=== PATIENT | male | born 1930 | race Caucasian/White ===

== ENCOUNTER 2019-01-26 10:04 | Emergency (ER) | payer MEDICARE, OTHER ==
[~2019-01-26] VITALS: Ht 157.5 cm; Wt 65.8 kg
[2019-01-26] MEDS ORDERED: UNOBMED (10:13)
--- NOTE | 2019-01-26 10:25 | NUR ---
ED Nurse Note: PT BROUGHT IN TO ER TODAY FROM HOME. AOX4. PT C/O LEFT ANKLE PAIN, 10/10 AFTER TWISTING IT X LAST NIGHT. FULL ROM OF ANKLE AND DIGITS BUT WITH PAIN. CIRCULATION AND SENSATION INTACT, CAP REFILL <3 SECONDS, AND SKIN CLEAN, DRY, AND INTACT. PT DENIES HEAD TRAUMA OR LOC.
--- NOTE | 2019-01-26 10:34 | NUR ---
ED Nurse Note: sap technical developer on bedside.
--- NOTE | 2019-01-26 11:04 | Diagnostic Imaging Report ---
Indication: left ankle pain Comparison: None Findings: 3 views of the left ankle obtained. No acute fracture, malalignment, periostitis, or osteochondral defects are identified. Mild lateral soft tissue swelling is present. Ossification noted in the plantar part of the foot involving the plantar aponeurosis. Impression: No acute findings
--- NOTE | 2019-01-26 11:22 | NUR ---
ED Nurse Note: ermd on bedside talking with pt and pt relative regarding the plan of care, florencia wrap plan on the pt left foot by automobile radio repairer. will continue to monitor
[2019-01-26] MEDS ORDERED: TYLENOL EXTRA500 MG ORAL (11:39)
[2019-01-26 11:42] VITALS: BP 143/71
--- NOTE | 2019-01-26 11:42 | NUR ---
ER DISCHARGE NOTE: Patient is cleared to be discharged per ERMD, pt is aox4, on room air, with stable vital signs. pt was given dc and prescription instructions, pt was able to verbalize understanding, pt id band removed without complications. pt is able to ambulate with steady gait. pt took all belongings.
--- NOTE | 2019-01-26 14:53 | Emergency Room Report ---
History of Present Illness General Chief Complaint: Lower Extremity Injury Source: Patient Present Illness HPI 89-year-old male presents ED for evaluation. Complaining of left ankle pain. States that he twisted his ankle last night at home. Denies hitting his head or LOC. Pain is dull, 5 out of 10, nonradiating. Denies any other injuries. No other aggravating relieving factors. Denies any other associated symptoms Allergies: Coded Allergies: AMOXICILLIN (Verified Allergy, Unknown, 01/26/19) Patient History Past Medical History: none Past Surgical History: none Pertinent Family History: none Social History: Denies: smoking, alcohol use, drug use Immunizations: UTD Reviewed Nursing Documentation: PMH: Agreed; PSxH: Agreed Nursing Documentation-PMH Past Medical History: Deferred Review of Systems All Other Systems: negative except mentioned in HPI Physical Exam Vital Signs Date Time Temp Pulse Resp B/P (MAP) Pulse Ox O2 Delivery O2 Flow Rate FiO2 01/26/19 10:11 98.2 88 16 143/71 (95) 94 Room Air Sp02 EP Interpretation: reviewed, normal General Appearance: no apparent distress, alert, GCS 15, non-toxic Head: normocephalic Eyes: bilateral eye normal inspection, bilateral eye PERRL ENT: normal ENT inspection Neck: normal inspection Respiratory: normal inspection Cardiovascular #1: normal inspection Gastrointestinal: normal inspection Rectal: deferred Genitourinary: no CVA tenderness Musculoskeletal: tender - L ankle Neurologic: alert, oriented x3, responsive, motor strength/tone normal, sensory intact, speech normal Psychiatric: normal inspection Skin: normal inspection Lymphatic: normal inspection Procedures Splinting Splinting : Consent: Verbal Pre-Made Type: HUNTER wrap Pre-Proc Neuro Vasc Exam: normal Post-Proc Neuro Vasc Exam: normal Patient Tolerated: Well Complications: None Medical Decision Making Diagnostic Impression: Primary Impression: Ankle sprain Qualified Codes: S93.402A - Sprain of unspecified ligament of left ankle, initial encounter ER Course Hospital Course 89-year-old M presents to ED complaining of L ankle pain s/p trip and fall Differential diagnoses include: Fracture, dislocation, sprain, contusion Clinical course Patient placed on stretcher. After initial history and physical, I ordered xrays of L ankle Xrays read shows no acute fracture/dislocation. placed in hunter wrap Discussed findings with patient. We'll discharged to home. We'll also provide orthopedic referrals. Diagnosis - ankle sprain Stable and discharged to home with prescription for tylenol. apply ice, keep elevated. weight bear as tolerated. Followup with PMD/ortho. Return to ED if symptoms recur or worsen Other X-Ray Diagnostic Results Other X-Ray Diagnostic Results : X-Ray ordered: L ankle # of Views/Limited Vs Complete: 3 View Indication: Pain EP Interpretation: Yes Interpretation: no dislocation, no soft tissue swelling, no fractures Impression: No acute disease Electronically Signed by: Electronically signed by Antonio Mendoza MD Last Vital Signs Date Time Temp Pulse Resp B/P (MAP) Pulse Ox O2 Delivery O2 Flow Rate FiO2 01/26/19 11:42 98.2 16 143/71 94 Room Air 01/26/19 10:11 88 Status: improved Disposition: HOME, SELF-CARE Condition: Stable Scripts Acetaminophen* (TYLENOL EXTRA STRENGTH*) 500 Mg Tablet 500 MG ORAL Q8H PRN for Prn Headache/Temp > 101, #30 TAB 0 Refills Prov: Antonio Mendoza MD 01/26/19 Referrals: [facility] Open 24 hour /7 days a week by Appointment Only [address] [facility] [address] Patient Instructions: Ankle Sprain Antonio Mendoza MD January 26, 2019 14:53
== END 2019-01-26 11:42 | disposition home or self-care (01) ==
LOC: EMR 10:20
DX: S93.402A Sprain of unspecified ligament of left ankle, initial encounter (principal); X50.1XXA Overexertion from prolonged static or awkward postures, initial encounter; Y92.009 Unspecified place in unspecified non-institutional (private) residence as the place of occurrence of the external cause; Z88.0 Allergy status to penicillin
CPT/HCPCS: 99283